=== PATIENT | male | born 1970 | race African-American/Black ===

== ENCOUNTER 2018-12-06 10:29 | Emergency (ER) | payer MEDICAID ==
[~2018-12-06] VITALS: Ht 175.3 cm; Wt 79.0 kg
[2018-12-06] MEDS ORDERED: ALBU6.7H IH (10:36)
[2018-12-06] MEDS ORDERED: NITROGLYCERIN 0.4MG TABLET SL SL PRN (11:00)
[2018-12-06] MEDS: LORAZEPAM 2MG/ML CPJ IV ONE (11:08)
[2018-12-06] MEDS: SODIUM CHLORIDE 0.9% 1,000 ML IV ONE (11:08)
[2018-12-06] MEDS: ASPIRIN 81MG TABLET PO ONE (11:09)
[2018-12-06 11:21] LABS: BASOPHILS % 1.1 % (0.0-2.0); EOSINOPHILS % 1.1 % (0.0-5.0); HEMATOCRIT. 45.9 % (42.0-52.0); HEMOGLOBIN. 15.7 g/dL (14.0-18.0); LYMPHOCYTES % 26.6 % (20.0-50.0); MEAN CORPUSCULAR HEMOGLOBIN 30.7 pg (28.0-32.0); MEAN CORPUSCULAR VOLUME 89.5 fL (80.0-94.0); MEAN PLATELET VOLUME 7.9 fl (7.4-10.4); MONOCYTES % 8.3 % (2.0-8.0); NEUTROPHILS % 62.9 % (40.0-76.0); PLATELET 268 x1000/uL (130-400); RED BLOOD CELL COUNT 5.13 mill/uL (4.7-6.1); RED CELL DISTRIBUTION WIDTH 14.4 % (11.6-14.6)
[2018-12-06 11:26] LABS: CHLORIDE 107 mEq/L (98-107)
[2018-12-06 11:30] LABS: ETHANOL BLOOD < 10 mg/dL
[2018-12-06 14:00] VITALS: BP 139/89
== END 2018-12-06 14:48 | disposition home or self-care (01) ==
LOC: ER 10:29
DX: R07.9 Chest pain, unspecified (principal); J45.909 Unspecified asthma, uncomplicated
CPT/HCPCS: 36415; 71045; 80053; 80320; 83880; 84484; 85025; 85379; 93005; 96374; 99284; J2060; J7030; Z7610; G0480

== ENCOUNTER 2019-10-19 10:48 | Emergency (ER) | payer MEDICAID, OTHER ==
[~2019-10-19] VITALS: Ht 177.8 cm; Wt 94.0 kg
[~2019-10-19 10:48] MED LIST: ALBU6.7H11 IH
[2019-10-19 11:19] VITALS: BP 152/85
[2019-10-19] MEDS ORDERED: KETOROLAC 30MG/ML VIAL IM ONE (12:15)
[2019-10-19] MEDS ORDERED: HYDROCODONE/ACETAMINOPHEN 5/325MG TABLET PO ONE (12:45)
== END 2019-10-19 13:24 | disposition home or self-care (01) ==
LOC: ER 10:48
DX: M54.40 Lumbago with sciatica, unspecified side (principal); J45.909 Unspecified asthma, uncomplicated; Z98.890 Other specified postprocedural states
CPT/HCPCS: 96372; 99283; J1885

== ENCOUNTER 2023-01-25 20:00 | Emergency (ER) | payer OTHER ==
[~2023-01-25 20:00] MED LIST changes: -ALBU6.7H11 IH; +ALBU6.7H15 IH
== END 2023-01-25 20:54 | disposition left against medical advice (07) ==
LOC: ER 20:00
DX: Z53.21 Procedure and treatment not carried out due to patient leaving prior to being seen by health care provider (principal)